=== PATIENT | female | born 1990 | race Caucasian/White ===

== ENCOUNTER 2021-06-28 01:45 | Emergency (ER) | payer SELFPAY ==
[~2021-06-28] VITALS: Ht 162.6 cm; Wt 57.6 kg
--- NOTE | 2021-06-28 01:50 | NUR ---
PT BIB [facility] 82 FROM HOME C/O UPPER ABD PAIN WITH N/V AND DIARREA. NO SOB OR LABORED BREATHING, AFEBRILE. DENIES CP/PRESSURE. A/O X4. DR. LEWIS AT BEDSIDE, MSE IN PROGRESS.
[2021-06-28] MEDS ORDERED: IV NS 1000 ML 1,000 ML IV ONE (02:00)
[2021-06-28 02:23] LABS: CARBON DIOXIDE 26 mmol/L (21-32); CHLORIDE 102 mmol/L (98-107); CREATININE 0.8 mg/dL (0.6-1.3); GLUCOSE 146 mg/dL (74-106); POTASSIUM 3.5 mmol/L (3.5-5.1); UREA NITROGEN, BLOOD 17 mg/dL (7-18)
[2021-06-28] MEDS ORDERED: MORPHINE SULFATE 2 MG/1 ML DISP.SYRIN IV ONE (02:30)
[2021-06-28] MEDS ORDERED: ONDANSETRON 4 MG/2 ML VIAL IV ONE ×2 (02:30→05:45)
[2021-06-28] MEDS ORDERED: FAMOTIDINE. 20 MG/2 ML VIAL IV ONE ×2 (02:30→02:40)
[2021-06-28 02:34] LABS: ALANINE AMINOTRANSFERASE 106 U/L (14-59); ALKALINE PHOSPHATASE 77 U/L (50-136); ASPARTATE AMINOTRANSFERASE 267 U/L (15-37); BILIRUBIN,DIRECT 0.4 mg/dL (0.0-0.2); BILIRUBIN,TOTAL 0.9 mg/dL (0.2-1.0); TOTAL PROTEIN, SERUM 7.9 g/dL (6.4-8.2)
[2021-06-28] MEDS ORDERED: ONDANSETRON 4 MG/2 ML VIAL ONE ×2 (02:40→05:40)
[2021-06-28] MEDS ORDERED: MORPHINE SULFATE 2 MG/1 ML DISP.SYRIN ONE (02:40)
[2021-06-28 02:49] LABS: PLATELET COUNT (AUTO) 323 K/uL (179-408)
[2021-06-28 02:50] LABS: LIPASE 112 U/L (73-393)
[2021-06-28 02:56] LABS: HEMATOCRIT 40.5 % (31.2-41.9); MEAN CORPUSCULAR HEMOGLOBIN 29.2 uug (24.7-32.8); MEAN CORPUSCULAR VOLUME 85.3 fL (75.5-95.3)
--- NOTE | 2021-06-28 02:57 | NUR ---
Erica alberts in [facility] - 06/28/21 at 0555 by [facility] PT TOLERATED PO CHALLENGE.
[2021-06-28 03:33] LABS: ETHANOL < 3 MG/DL (0-0)
--- NOTE | 2021-06-28 03:54 | NUR ---
PT BEING TAKEN DOWN FOR CT.
[2021-06-28] MEDS ORDERED: SWABABLE VALVE TRANSFER SET EA MC ONE (03:58)
[2021-06-28] MEDS ORDERED: IV NORMAL SALINE 250 ML IV ONE (03:58)
[2021-06-28] MEDS ORDERED: IOHEXOL 300MG/ML 100 ML INFUS..BTL ONE (03:58)
--- NOTE | 2021-06-28 04:08 | NUR ---
PT RETURNED FROM CT.
--- NOTE | 2021-06-28 05:12 | NUR ---
PT AMBULATED TO RESTROOM, STEADY GAIT. DENIES PATTERSON/DIZZYNESS.
[2021-06-28] MEDS ORDERED: ONDA4TAB11 PO (05:37)
[2021-06-28] MEDS ORDERED: FAMO-132 PO (05:37)
[2021-06-28 05:38] LABS: *BILIRUBIN,URIN NEGATIVE (NEGATIVE); *BLOOD, URINE 1+ (NEGATIVE); *CLARITY,URINE CLEAR (CLEAR); *COLOR,URINE YELLOW (YELLOW); *KETONES,URINE NEGATIVE (NEGATIVE); LEUKOCYTE ESTERASE ,URINE NEGATIVE (NEGATIVE); NITRITE, URINE NEGATIVE (NEGATIVE); PH,URINE 6.5 (5.0-8.0); UGLUCOSE NEGATIVE (NEGATIVE)
[2021-06-28 05:42] LABS: *URINE HCG, QUAL NEGATIVE (NEGATIVE)
--- NOTE | 2021-06-28 06:16 | NUR ---
PT TOLERATED PO CHALLENGE.
--- NOTE | 2021-06-28 06:30 | NUR ---
Patient discharged to home in stable condition. Written and verbal after care instructions given. Patient verbalizes understanding of instructions. Stressed follow up or return to ER for worsening s/s. Steady gait. Denies any n/v/d. No PATTERSON or dizziness. Picked up by family.
[2021-06-28 06:38] VITALS: BP 115/61
[2021-06-28 09:37] LABS: BACTERIA,URINE NONE SEEN /HPF (NONE SEEN); SQUAMOUS EPITHELIAL CELL,UR FEW /HPF (NONE SEEN); WBC,URINE 0-3 /HPF (0-3)
== END 2021-06-28 06:39 | disposition home or self-care (01) ==
LOC: ER 01:47
DX: R10.13 Epigastric pain (principal); R11.2 Nausea with vomiting, unspecified; Z90.49 Acquired absence of other specified parts of digestive tract; Z98.84 Bariatric surgery status; Z83.3 Family history of diabetes mellitus; D72.829 Elevated white blood cell count, unspecified
CPT/HCPCS: 36415; 74177; 80048; 80076; 80320; 81001; 83605; 83690; 84702; 84703; 85025; 96361; 96374; 96375; 96376; 99285; J2270; J2405 ×2; J3490; Q9967; A4663; G0480; J7030; J7050